=== PATIENT | male | born 1960 | race American Indian/Alaskan Native ===

== ENCOUNTER 2021-12-25 21:13 | Emergency (ER) | payer OTHER ==
[~2021-12-25] VITALS: Ht 172.7 cm; Wt 70.8 kg
[~2021-12-25 21:13] MED LIST: ALLOPURINOL300 MG PO; BENADRYL25 MG PO; DILAUDID4 MG PO; DIPHENHYDRAMINE25 MG PO; DOXYCYCLINE HY100 MG PO; INDOMETHACIN25 MG PO; NAPROXEN500 MG PO; NORCO 5-325 TA1 EACH PO; PREDNISONE20 MG PO
--- OUTSIDE RECORDS SUMMARY | 2021-12-25 21:14 | XMS ---
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 Boyd has no Care Guidelines for this patient. J[facility] V[facility] ([facility] MO.) [facility] T[facility] NOTE: Visits indicate total known visits. ED/C VISIT TRACKING (12 MO.) 12/25/2021 21:13 [facility] [place] TYPE: Emergency COMPLAINT: - LT FOOT SWELLING 12/20/2021 20:51 [facility] [place] TYPE: Emergency COMPLAINT: - TESTICLE SWELLING INPATIENT VISIT TRACKING (12 MO.) No inpatient visits to display in this time frame [id number]
== END 2021-12-26 00:52 | disposition home or self-care (01) ==
LOC: ED 21:13
DX: L03.116 Cellulitis of left lower limb (principal); Z20.822 Contact with and (suspected) exposure to COVID-19; F17.200 Nicotine dependence, unspecified, uncomplicated
CPT/HCPCS: 10060; 36415; 73590; 80053; 85025; 87070; 87205; 87502; 90471; 90715; 93971; 99284-25; A9270; C9803; J3370; J7060; U0003

== ENCOUNTER 2021-12-27 20:36 | Emergency (ER) | payer OTHER ==
[~2021-12-27] VITALS: Ht 172.7 cm; Wt 70.3 kg
--- OUTSIDE RECORDS SUMMARY | 2021-12-27 20:44 | XMS ---
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 Boyd has no Care Guidelines for this patient. [facility]efry [facility] (12 MO.) [facility] T[facility] 3 NOTE: Visits indicate total known visits. ED/C VISIT TRACKING (12 MO.) [facility] COMPLAINT: - RE-CHECK LEG 12/25/2021 21:13 [facility] [place] TYPE: Emergency COMPLAINT: - LT FOOT SWELLING/NO INJ 12/20/2021 20:51 [facility] [place] TYPE: Emergency COMPLAINT: - TESTICLE SWELLING INPATIENT VISIT TRACKING (12 MO.) No inpatient visits to display in this time frame [id number]
== END 2021-12-27 21:32 | disposition home or self-care (01) ==
LOC: ED 20:36
DX: L03.116 Cellulitis of left lower limb (principal); L02.416 Cutaneous abscess of left lower limb; F17.200 Nicotine dependence, unspecified, uncomplicated
CPT/HCPCS: A9270

== ENCOUNTER 2024-06-04 08:28 | Emergency (ER) | payer OTHER ==
[~2024-06-04] VITALS: Ht 177.8 cm; Wt 79.5 kg
[~2024-06-04 08:28] MED LIST changes: -DOPamine 400 MG/D5W 250 ML IV SCH; -EPINEPHrine HCL 1 MG/10 ML SYR IV SCH
[2024-06-04] MEDS ORDERED: SODIUM CHLORIDE 0.9% 1,000 ML IV ONE (08:45)
[2024-06-04] MEDS ORDERED: DEXTROSE 50% 50 ML SYR IV ONE (08:45)
[2024-06-04] MEDS ORDERED: CEFTRIAXONE/SODIUM CHLORIDE 2 GM/100 ML PIGGYBACK IV ONE (08:45)
[2024-06-04] MEDS ORDERED: KETAMINE HCL IN NACL, ISO-OSM 100 ML IV ONE ×2 (08:51→17:02)
[2024-06-04 08:52] LABS: HEMATOCRIT 43.5 % (35.0-50.0); HEMOGLOBIN 13.8 g/dL (12.0-18.0); MCH 29.3 (27-36); MCHC 31.8 g/dl (30-36); MCV 91.9 fl (81-99); PLATELET COUNT 137 K/uL (140-440); RBC 4.73 M/ul (4.3-5.7); RDW 19.3 (10.5-15.0)
[2024-06-04 09:02] LABS: INR 2.25 (0.80-1.30); PROTIME 24.5 Sec (11.2-14.2)
[2024-06-04 09:04] LABS: PARTIAL THROMBOPLASTIN TIME 36.3 Sec (22.9-41.3)
[2024-06-04 09:12] LABS: LACTIC ACID, BLOOD 5.6 mmol/L (0.4-2.0)
[2024-06-04 09:15] LABS: ALBUMIN 2.8 g/dL (3.4-5.0); ALBUMIN/GLOBULIN RATIO 0.76 (1.1-2.4); ALCOHOL, MEDICAL <3 ng/dL (<3); ALKALINE PHOSPHATASE 115 U/L (46-116); ALT (SGPT) 137 U/L (14-59); ANION GAP 24.7 (7-21); AST (SGOT) 240 U/L (15-37); BILIRUBIN, TOTAL 2.3 ng/dL (0.2-1.0); BUN/CREATININE RATIO 19.68 (6.0-28.6); CALCIUM 8.9 mg/dL (8.5-10.1); CARBON DIOXIDE 15 mmol/L (21-32); CHLORIDE 102 mmol/L (98-107); CREATINE KINASE 376 U/L (39-308); CREATININE, SERUM 2.54 mg/dL (0.70-1.30); GLOMERULAR FILTRATION RATE,EST 27 mL/min (>60); MAGNESIUM 2.5 mg/dL (1.8-2.4); POTASSIUM 5.7 mmol/L (3.5-5.1); PROTEIN, TOTAL 6.5 g/dL (6.4-8.2); TSH, 3RD GENERATION 3.085 uIU/mL (0.358-3.740); UREA NITROGEN 50 mg/dL (7-18)
[2024-06-04 09:26] LABS: BANDS, MANUAL DIFF 2; LYMPHOCYTES, MANUAL DIFF 3; MONOCYTES, MANUAL DIFF 8; NEUTROPHILS, MANUAL DIFF 87
[2024-06-04 09:27] LABS: BILIRUBIN, URINE NEGATIVE (negative); BLOOD/HGB, URINE SMALL (Negative); KETONE, URINE NEGATIVE (Negative); LEUK ESTERASE, URINE NEGATIVE (negative); NITRITE, URINE NEGATIVE (negative); PH, URINE 5.5 (5-7)
[2024-06-04 09:33] LABS: BACTERIA, URINE 1+ /hpf (negative); CASTS, URINE HYALINE 2+ \\lpf; COLLECTION TYPE, URINE CLEAN CATCH; CRYSTALS, URINE NONE SEEN (0-1+); REFLEX CULTURE, URINE No (No)
[2024-06-04 09:43] LABS: AMPHETAMINES, URINE POSITIVE (NEGATIVE); BARBITURATES, URINE NEGATIVE (NEGATIVE); BENZODIAZEPINE, URINE NEGATIVE (NEGATIVE); BUPRENORPHINE, URINE NEGATIVE (NEGATIVE); CANNABINOID, URINE POSITIVE (NEGATIVE); COCAINE, URINE NEGATIVE (NEGATIVE); ECSTASY, URINE POSITIVE (NEGATIVE); FENTANYL, URINE NEGATIVE (NEGATIVE); METHADONE, URINE NEGATIVE (NEGATIVE); OPIATES, URINE NEGATIVE (NEGATIVE); OXYCODONE, URINE NEGATIVE (NEGATIVE); PHENCYCLIDINE, URINE NEGATIVE (NEGATIVE)
[2024-06-04 09:45] LABS: INFLUENZA B NAA NEGATIVE (NEGATIVE); RESPIRATORY SYNCYTIAL VIR NAA NEGATIVE (NEGATIVE)
[2024-06-04] MEDS ORDERED: EPINEPHrine HCL 4 MG in DEXTROSE 5% 250 ML IV SCH (09:45)
[2024-06-04] MEDS ORDERED: KETAMINE in NS 50 MG/5 ML SYR ONE (09:46)
[2024-06-04 09:57] LABS: BASE EXCESS, BLOOD GAS -12.3 mmol/L (-2-2); O2 SATURATION, BLOOD GAS 76.9 % (95.0-100.0); OXYGEN RECEIVED, BLOOD GAS 100%; PCO2, BLOOD GAS 29.6 mmHg (35-45); PH, BLOOD GAS 7.29 (7.35-7.45); PO2, BLOOD GAS 25 mmHg (80-100); TOTAL CO2, BLOOD GAS 18.6
[2024-06-04] MEDS ORDERED: [UNRECOGNIZED DRUG - OTHER] IV ONE (10:00)
[2024-06-04] MEDS ORDERED: KETAMINE IV ONE (10:00)
[2024-06-04] MEDS ORDERED: ETOMIDATE 40 MG/20 ML VIAL IV ONE (10:00)
[2024-06-04] MEDS ORDERED: SODIUM BICARBONATE 50 MEQ/50 ML SYR IV ONE (10:00)
[2024-06-04] MEDS ORDERED: EPINEPHrine HCL 1 MG/10 ML SYR IV SCH (10:00)
[2024-06-04] MEDS ORDERED: SODIUM CHLORIDE IV ONE (10:00)
[2024-06-04] MEDS ORDERED: KETAMINE in NS 50 MG/5 ML SYR IV ONE ×2 (10:00→10:45)
[2024-06-04] MEDS ORDERED: SUCCINYLCHOLINE IN 0.9% NACL 200 MG/10 ML SYRINGE IV ONE (10:00)
[2024-06-04] MEDS ORDERED: SODIUM CHLORIDE 0.9% 1,000 ML IV SCH ×2 (10:30→14:30)
[2024-06-04] MEDS ORDERED: MIDAZOLAM HCL 2 MG/2 ML VIAL ONE (11:11)
[2024-06-04] MEDS ORDERED: MIDAZOLAM HCL 2 MG/2 ML VIAL IV ONE (11:15)
[2024-06-04] MEDS ORDERED: MIDAZOLAM HCL 100 MG in DEXTROSE 5% 80 ML IV SCH (11:30)
[2024-06-04 12:27] LABS: PH, VENOUS 7.265 (7.31-7.41)
[2024-06-04 12:30] LABS: BASOPHILS 0.2 % (0-2); EOSINOPHILS 0.1 % (0-6); HEMATOCRIT 44.4 % (35.0-50.0); HEMOGLOBIN 13.9 g/dL (12.0-18.0); LYMPHOCYTES 4.5 % (24-44); MCH 28.7 (27-36); MCHC 31.4 g/dl (30-36); MCV 91.5 fl (81-99); MONOCYTES 3.4 % (0-12); NEUTROPHILS 91.8 % (39-80); PLATELET COUNT 108 K/uL (140-440); RBC 4.85 M/ul (4.3-5.7); RDW 19.8 (10.5-15.0)
[2024-06-04 12:49] LABS: ALBUMIN 2.5 g/dL (3.4-5.0); ALBUMIN/GLOBULIN RATIO 0.76 (1.1-2.4); BILIRUBIN, TOTAL 2.2 ng/dL (0.2-1.0); BUN/CREATININE RATIO 20.08 (6.0-28.6); CALCIUM 8.1 mg/dL (8.5-10.1); CREATININE, SERUM 2.49 mg/dL (0.70-1.30); PROTEIN, TOTAL 5.8 g/dL (6.4-8.2)
[2024-06-04 13:02] LABS: INR 2.78 (0.80-1.30); PROTIME 28.3 Sec (11.2-14.2)
[2024-06-04] MEDS ORDERED: SODIUM BICARBONATE 50 MEQ in DEXTROSE 5% 1,000 ML IV SCH (13:15)
[2024-06-04] MEDS ORDERED: SODIUM CHLORIDE 0.9% 1,000 ML IV PRN (14:30)
[2024-06-04 15:16] LABS: BASOPHILS 0.6 % (0-2); EOSINOPHILS 0.1 % (0-6); HEMATOCRIT 42.8 % (35.0-50.0); HEMOGLOBIN 13.3 g/dL (12.0-18.0); LYMPHOCYTES 2.6 % (24-44); MCH 28.7 (27-36); MCHC 31.1 g/dl (30-36); MCV 92.4 fl (81-99); MONOCYTES 3.6 % (0-12); NEUTROPHILS 93.1 % (39-80); PLATELET COUNT 123 K/uL (140-440); RBC 4.63 M/ul (4.3-5.7); RDW 19.9 (10.5-15.0)
[2024-06-04 15:24] LABS: INR 3.02 (0.80-1.30); PROTIME 30.3 Sec (11.2-14.2)
[2024-06-04] MEDS ORDERED: FENTANYL CITRATE-0.9 % NACL/PF 100 ML IV SCH (15:30)
[2024-06-04] MEDS ORDERED: SODIUM BICARBONATE 150 MEQ in DEXTROSE 5% 1,000 ML IV SCH (15:30)
[2024-06-04 15:31] LABS: ALBUMIN 2.3 g/dL (3.4-5.0); ALBUMIN/GLOBULIN RATIO 0.79 (1.1-2.4); ANION GAP 23.1 (7-21); BILIRUBIN, TOTAL 2.3 ng/dL (0.2-1.0); BUN/CREATININE RATIO 20.07 (6.0-28.6); CALCIUM 7.7 mg/dL (8.5-10.1); CREATININE, SERUM 2.54 mg/dL (0.70-1.30); POTASSIUM 4.1 mmol/L (3.5-5.1); PROTEIN, TOTAL 5.2 g/dL (6.4-8.2)
[2024-06-04 15:33] LABS: BASE EXCESS, BLOOD GAS -15.8 mmol/L (-2-2); HCO3, BLOOD GAS 11.4 mmol/L (22-26); O2 SATURATION, BLOOD GAS 85.1 % (95.0-100.0); PCO2, BLOOD GAS 22.9 mmHg (35-45); PH, BLOOD GAS 7.27 (7.35-7.45); TOTAL CO2, BLOOD GAS 12.4
[2024-06-04] MEDS ORDERED: NOREPINEPHRINE BITARTRATE 250 ML IV SCH ×2 (16:30→19:00)
[2024-06-04] MEDS ORDERED: KETAMINE IV SCH (17:00)
[2024-06-04] MEDS ORDERED: [UNRECOGNIZED DRUG - OTHER] IV SCH (17:00)
[2024-06-04] MEDS ORDERED: SODIUM CHLORIDE IV SCH (17:00)
[2024-06-04] MEDS ORDERED: KETAMINE HCL IN NACL, ISO-OSM 100 ML IV SCH (17:15)
[2024-06-04] MEDS ORDERED: DEXTROSE 5% IV SCH (17:45)
[2024-06-04] MEDS ORDERED: ROCURONIUM BROMIDE IV SCH (17:45)
[2024-06-04] MEDS ORDERED: ROCURONIUM BROMIDE 50 MG/5 ML SYR IV ONE (17:45)
[2024-06-04 18:53] VITALS: BP 89/68
--- NOTE | 2024-06-04 20:23 | EKG ---
[facility] [address] [place], [place] [address] Signed Atrial fibrillation with slow ventricular response with ventricular escape complexes Nonspecific intraventricular block T wave abnormality, consider lateral ischemia Abnormal ECG No previous ECGs available Confirmed by Jaiden Ye MD ([id number]) on 06/04/2024 8:22:58 PM Electronically Signed By: JAIDEN YE MD 06/04/242022 PATIENT NAME: KATHRINTRIPP REX Electrocardiogram DATE OF : 60 PHYSICIAN: JAIDEN YE MD REPORT #: [id number] REPORT IS CONFIDENTIAL AND NOT TO BE RELEASED WITHOUT AUTHORIZATION
== END 2024-06-04 18:50 | disposition short-term general hospital (02) ==
LOC: ED 08:28 → EDBD 08:29 → ED 18:50
PROVIDERS: Emergency Medicine
DX: R41.82 Altered mental status, unspecified (principal); T68.XXXA Hypothermia, initial encounter; F15.10 Other stimulant abuse, uncomplicated; F12.10 Cannabis abuse, uncomplicated; I25.2 Old myocardial infarction
CPT/HCPCS: 31500; 36415; 36556; 36600; 36680; 51702; 51798; 70450; 71045; 80053; 80307; 81001; 82140; 82553; 82803; 83605; 83735; 83880; 84443; 84484; 85025; 85610; 85730; 87040; 87502; 92950; 93005; 93010; 99291; G0480; J0171; J0330; J0696; J2250; J3010; J3490; J7030; J7060; J7070; U0002

== ENCOUNTER → 2024-06-04 | Emergency (ER) | payer OTHER ==
[~2024-06-04] MED LIST changes: +DOPamine 400 MG/D5W 250 ML IV SCH; +EPINEPHrine HCL 1 MG/10 ML SYR IV SCH
--- OUTSIDE RECORDS SUMMARY | 2024-06-04 19:14 | XMS ---
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 Boyd has no Care Guidelines for this patient. Jefry VISIT COUNT (12 MO.) [address] [facility] [place] [facility]. TOTAL 2 NOTE: Visits indicate total known visits. ED/[facility] VISIT TRACKING (12 MO.) 06/04/2024 19:[address] [facility] [place] TYPE: Emergency COMPLAINT: - TRAUMA 06/04/2024 08:29 [facility] [place] TYPE: Emergency COMPLAINT: - TRAUMA INPATIENT VISIT TRACKING (12 MO.) No inpatient visits to display in this time frame [id number]
[2024-06-04 19:49] VITALS: BP 138/106
== END ==
LOC: ED 19:07
DX: I46.9 Cardiac arrest, cause unspecified (principal)
CPT/HCPCS: 31500; 36556; 99285; J0171; J1265